=== PATIENT | female | born 1955 | race African-American/Black ===

== ENCOUNTER 2022-03-26 18:59 | Inpatient (IN) | payer OTHER ==
[2022-03-26 19:31] VITALS: BMI 29.2
[2022-03-26] MEDS ORDERED: ACETAMINOPHEN 325 MG TABLET (FP) PO PRN ×2 (20:34)
[2022-03-26] MEDS ORDERED: MAGNESIUM HYDROX 2400MG/30ML ORAL SUSPENSION 30 ML CUP PO PRN (20:34)
[2022-03-26] MEDS ORDERED: ONDANSETRON *ODT* 4 MG TABLET SL PRN (20:34)
[2022-03-26] MEDS ORDERED: MELATONIN 5 MG TABLETS PO PRN (20:34)
[2022-03-26] MEDS ORDERED: MAG HYDROX/AL HYDROX/SIMETH 30 ML UNIT-DOSE CUP PO PRN (20:34)
[2022-03-26] MEDS ORDERED: IBUPROFEN 400 MG TABLET (FP) PO PRN (20:34)
[2022-03-26] MEDS ORDERED: BENZOCAINE/MENTHOL (CHLORASEPTIC ) LOZENGE MM PRN (20:34)
[2022-03-26] MEDS ORDERED: hydrOXYzine PAMOATE 25 MG CAPSULE (FP) PO PRN (20:34)
[2022-03-26] MEDS ORDERED: LOPERAMIDE HCL 2 MG CAPSULE PO PRN (20:34)
[2022-03-26] MEDS ORDERED: BISMUTH SUBSALICYLATE 524 MG/30 ML PO PRN (20:34)
[2022-03-26] MEDS ORDERED: MAGNESIUM CITRATE 300 ML BOTTLE PO PRN (20:34)
[2022-03-26] MEDS ORDERED: METHOCARBAMOL 500 MG TABLET PO PRN (20:34)
[2022-03-26] MEDS ORDERED: IBUPROFEN 600 MG TABLET (FP) PO PRN (20:34)
[2022-03-26] MEDS ORDERED: DICYCLOMINE HCL 10 MG CAPSULE PO PRN (20:34)
[2022-03-27] MEDS: THIAMINE HCL 100 MG TABLET (FP) PO SCH ×2 (01:04→22:29)
[2022-03-27] MEDS ORDERED: LORazepam 1 MG TABLET PO PRN (10:14)
[2022-03-27] MEDS ORDERED: PATIENT'S OWN MEDICATION (NON-FORMULARY) (Tizanidine Hcl [Tizanidine Hcl] 6 MG Capsule) PO PRN (10:27)
[2022-03-27] MEDS: PRENATAL VITAMINS W/ FOLIC ACID TABLET (FP) PO SCH (10:45)
[2022-03-27] MEDS: LORazepam 2 MG TABLET PO SCH ×3 (10:49→22:29)
[2022-03-27 12:56] LABS: MCH 32.3 pg (25.7-33.7); MCHC 34.5 g/dl (32.0-36.0); MEAN CELL VOLUME 93.8 fl (80-96); MEAN PLT VOLUME 8.9 fl (7.5-11.1); PLATELET COUNT 182 10^3/uL (134-434); RBC 3.73 M/mm3 (3.60-5.2); RDW 16.9 % (11.6-15.6)
[2022-03-27 13:28] LABS: ALBUMIN 3.4 g/dl (3.4-5.0); BILIRUBIN,TOTAL 0.6 mg/dL (0.2-1); TOT PROT 6.3 g/dl (6.4-8.2)
[2022-03-27 13:30] LABS: CREATININE 0.5 mg/dL (0.55-1.3)
[2022-03-27 13:33] LABS: CALCIUM 8.7 mg/dL (8.5-10.1)
[2022-03-27] MEDS: PREGABALIN 100 MG CAPSULE PO SCH ×2 (14:53→22:29)
[2022-03-27] MEDS ORDERED: DIVALPROEX SODIUM 500 MG TABLET E.C. PO ONE (18:38)
[2022-03-27] MEDS ORDERED: QUEtiapine FUMARATE 200 MG TABLET PO SCH (22:00)
[2022-03-28] MEDS: PREGABALIN 100 MG CAPSULE PO SCH ×3 (06:49→23:15)
[2022-03-28] MEDS: LORazepam 2 MG TABLET PO SCH ×4 (06:49→23:15)
[2022-03-28] MEDS: PRENATAL VITAMINS W/ FOLIC ACID TABLET (FP) PO SCH (10:55)
[2022-03-28] MEDS ORDERED: ALBUTEROL SO4 HFA INHALER IH PRN (15:30)
[2022-03-28] MEDS: SPIRONOLACTONE 25 MG TABLET PO SCH (19:10)
[2022-03-28] MEDS: LORATADINE 10 MG TABLET PO SCH (19:11)
[2022-03-28] MEDS ORDERED: QUEtiapine FUMARATE 200 MG TABLET PO SCH ×2 (22:00)
[2022-03-28] MEDS: PANTOPRAZOLE 40 MG TABLET PO SCH (23:15)
[2022-03-28] MEDS: THIAMINE HCL 100 MG TABLET (FP) PO SCH (23:15)
[2022-03-28] MEDS: DIVALPROEX SODIUM 500 MG TABLET E.C. PO SCH (23:15)
[2022-03-29] MEDS: LORazepam 1 MG TABLET PO SCH ×4 (06:58→22:54)
[2022-03-29] MEDS: PREGABALIN 100 MG CAPSULE PO SCH ×3 (06:59→22:55)
[2022-03-29] MEDS ORDERED: MONTELUKAST NA 10 MG TABLET PO SCH (10:00)
[2022-03-29] MEDS: PRENATAL VITAMINS W/ FOLIC ACID TABLET (FP) PO SCH (10:41)
[2022-03-29] MEDS: LORATADINE 10 MG TABLET PO SCH (10:42)
[2022-03-29] MEDS: PANTOPRAZOLE 40 MG TABLET PO SCH ×2 (10:42→22:55)
[2022-03-29] MEDS: CITALOPRAM HYDROBROMIDE 20 MG TABLET PO SCH (10:42)
[2022-03-29] MEDS: MONTELUKAST NA 10 MG TABLET PO SCH (10:43)
[2022-03-29] MEDS: SPIRONOLACTONE 25 MG TABLET PO SCH (13:44)
[2022-03-29] MEDS: TORSEMIDE 10 MG TABLET PO SCH (13:44)
[2022-03-29] MEDS: ACYCLOVIR 800 MG TABLET PO SCH ×2 (13:45→22:55)
[2022-03-29] MEDS: THIAMINE HCL 100 MG TABLET (FP) PO SCH (22:54)
[2022-03-29] MEDS: QUEtiapine FUMARATE 100 MG TABLET (FP) PO SCH (22:55)
[2022-03-29] MEDS: DIVALPROEX SODIUM 500 MG TABLET E.C. PO SCH (22:55)
[2022-03-30] MEDS ORDERED: LORazepam 0.5 MG TABLET PO PRN
[2022-03-30] MEDS: LORazepam 0.5 MG TABLET PO SCH ×4 (06:21→23:06)
[2022-03-30] MEDS: ACYCLOVIR 800 MG TABLET PO SCH ×3 (06:21→23:05)
[2022-03-30] MEDS: PREGABALIN 100 MG CAPSULE PO SCH ×3 (06:21→23:05)
[2022-03-30] MEDS: LORATADINE 10 MG TABLET PO SCH (10:40)
[2022-03-30] MEDS: CITALOPRAM HYDROBROMIDE 20 MG TABLET PO SCH (10:41)
[2022-03-30] MEDS: PANTOPRAZOLE 40 MG TABLET PO SCH ×2 (10:41→23:06)
[2022-03-30] MEDS: TORSEMIDE 10 MG TABLET PO SCH (10:41)
[2022-03-30] MEDS: MONTELUKAST NA 10 MG TABLET PO SCH (10:57)
[2022-03-30] MEDS: PRENATAL VITAMINS W/ FOLIC ACID TABLET (FP) PO SCH (10:57)
[2022-03-30] MEDS: SPIRONOLACTONE 25 MG TABLET PO SCH (10:57)
[2022-03-30] MEDS: QUEtiapine FUMARATE 100 MG TABLET (FP) PO SCH (23:05)
[2022-03-30] MEDS: DIVALPROEX SODIUM 500 MG TABLET E.C. PO SCH (23:05)
[2022-03-30] MEDS: THIAMINE HCL 100 MG TABLET (FP) PO SCH (23:06)
[2022-03-30] MEDS: BUDESONIDE/FORMETEROL FUMARATE 160/4.5 mcg INHALER IH SCH (23:30)
[2022-03-31] MEDS ORDERED: LORazepam 0.5 MG TABLET PO ONE (05:00)
[2022-03-31] MEDS: ACYCLOVIR 800 MG TABLET PO SCH (06:55)
[2022-03-31] MEDS: PREGABALIN 100 MG CAPSULE PO SCH ×2 (06:56→15:02)
[2022-03-31] MEDS: BUDESONIDE/FORMETEROL FUMARATE 160/4.5 mcg INHALER IH SCH (11:04)
[2022-03-31] MEDS: PRENATAL VITAMINS W/ FOLIC ACID TABLET (FP) PO SCH (11:05)
[2022-03-31] MEDS: SPIRONOLACTONE 25 MG TABLET PO SCH (11:05)
[2022-03-31] MEDS: CITALOPRAM HYDROBROMIDE 20 MG TABLET PO SCH (11:05)
[2022-03-31] MEDS: LORATADINE 10 MG TABLET PO SCH (11:05)
[2022-03-31] MEDS: TORSEMIDE 10 MG TABLET PO SCH (11:05)
[2022-03-31] MEDS: PANTOPRAZOLE 40 MG TABLET PO SCH (11:05)
[2022-03-31] MEDS: MONTELUKAST NA 10 MG TABLET PO SCH (11:10)
[2022-03-31 13:01] VITALS: BP 104/65; PULSE 96; TEMP 96.8
== END 2022-03-31 15:25 | disposition home or self-care (01) | DRG 897 ==
LOC: YASAS 18:59 → Y3N 22:32
PROVIDERS: ADMIT Allergy & Immunology; ATTEND Surgery
PROC: HZ2ZZZZ Detoxification Services for Substance Abuse Treatment (ICD-10-PCS; principal; 2022-03-26)
DX: F10.230 Alcohol dependence with withdrawal, uncomplicated (principal); F14.20 Cocaine dependence, uncomplicated; F19.280 Other psychoactive substance dependence with psychoactive substance-induced anxiety disorder; F19.282 Other psychoactive substance dependence with psychoactive substance-induced sleep disorder; F19.24 Other psychoactive substance dependence with psychoactive substance-induced mood disorder; F25.9 Schizoaffective disorder, unspecified; F31.9 Bipolar disorder, unspecified; F60.9 Personality disorder, unspecified; F41.1 Generalized anxiety disorder; I10 Essential (primary) hypertension; J45.40 Moderate persistent asthma, uncomplicated; K21.9 Gastro-esophageal reflux disease without esophagitis; M17.0 Bilateral primary osteoarthritis of knee; M16.12 Unilateral primary osteoarthritis, left hip; M16.11 Unilateral primary osteoarthritis, right hip; Z88.8 Allergy status to other drugs, medicaments and biological substances; Z88.5 Allergy status to narcotic agent; Z91.011 Allergy to milk products; Z91.041 Radiographic dye allergy status
CPT/HCPCS: 36415; 71045-TC-FY; 80053; 80164; 85027; 86780; 87811; 93005; 93010; C9803-CS; Q0162; U0003; U0005